=== PATIENT | female | born 2000 | race Caucasian/White ===

== ENCOUNTER 2021-07-10 07:00 | Outpatient (CLI) | payer BC ==
--- NOTE | 2021-07-11 12:14 | XRAY Report ---
PROCEDURE: Hand 3 View LT INDICATIONS: L THUMB PX TECHNIQUE: 3 views of the hand(s) acquired. COMPARISON: None FINDINGS: Bones: Fracture involving the medial corner of the base of the first proximal phalange. Soft tissues: No suspicious soft tissue calcifications. IMPRESSION: First proximal phalange fracture. Reviewed by: Kristie Gutierrez MD, PhD on 07/11/2021 12:13 PM PDT Approved by: Kristie Gutierrez MD, PhD on 07/11/2021 12:13 PM PDT Station ID: [id number]
== END 2021-07-10 23:59 | disposition home or self-care (01) ==
LOC: DI.N 07:00
PROVIDERS: ATTEND Family Medicine
DX: S62.512A Displaced fracture of proximal phalanx of left thumb, initial encounter for closed fracture (principal)

== ENCOUNTER 2021-07-11 13:02 | Outpatient (CLI) | payer BC ==
[2021-07-13 12:31] LABS: NIL 0.32 IU/mL; TB1-NIL 0.01 IU/mL
== END 2021-07-11 23:59 | disposition home or self-care (01) ==
LOC: LAB.N 13:02
PROVIDERS: ATTEND Family Medicine
DX: Z11.59 Encounter for screening for other viral diseases (principal); Z11.1 Encounter for screening for respiratory tuberculosis
CPT/HCPCS: 36415; 86480; 86707; 86787